=== PATIENT | female | born 1935 | race Caucasian/White ===

== ENCOUNTER 2016-09-15 | Outpatient (CLI) | payer MEDICARE, BC | END 2016-09-15 17:34 | disposition critical access hospital (66) | CPT/HCPCS: A0425; A0429 ==

== ENCOUNTER 2016-09-15 17:51 | Inpatient (IN) | payer MEDICARE, BC ==
[2016-09-15] MEDS ORDERED: SODIUM CHLORIDE 0.9% 1,000 ML IV ONE (18:09)
[2016-09-15] MEDS ORDERED: methylPREDNISolone SUCCINATE 125 MG/2 ML VIAL IVP STA (19:38)
[2016-09-15] MEDS ORDERED: IPRATROPIUM/ALBUTEROL 3 ML NEB INH STA (19:38)
[2016-09-15] MEDS ORDERED: methylPREDNISolone SUCCINATE 125 MG/2 ML VIAL IVP ONE (19:48)
[2016-09-15] MEDS ORDERED: IPRATROPIUM/ALBUTEROL 3 ML NEB INH ONE (20:32)
[2016-09-15] MEDS ORDERED: ACETAMINOPHEN 325 MG TABLET PO PRN (21:22)
[2016-09-15] MEDS ORDERED: SODIUM CHLORIDE FLUSH 0.9% 10 ML SYRINGE IVP PRN (21:22)
[2016-09-15] MEDS ORDERED: ONDANSETRON 4 MG/2 ML VIAL IVP PRN (21:22)
[2016-09-15] MEDS ORDERED: ALBUTEROL NEB 2.5 MG/3 ML INH PRN (21:27)
[2016-09-15] MEDS ORDERED: AZITHROMYCIN INJ 500 MG in SODIUM CHLORIDE 0.9% 250 ML IV SCH (21:29)
[2016-09-15] MEDS ORDERED: levETIRAcetam 100 MG/ML 473ML BOTTLE PO SCH (22:00)
[2016-09-15] MEDS: methylPREDNISolone SUCCINATE 40 MG/ML VIAL IVP SCH ×2 (22:15→22:39)
[2016-09-15] MEDS: IPRATROPIUM/ALBUTEROL 3 ML NEB INH SCH ×3 (22:15→23:29)
[2016-09-15] MEDS ORDERED: levETIRAcetam 250 MG TABLET ONE (22:57)
[2016-09-15] MEDS: EZETIMIBE 10 MG TABLET PO SCH (22:59)
[2016-09-15] MEDS: METOPROLOL TARTRATE 50 MG TABLET PO SCH (22:59)
[2016-09-15] MEDS: OLANZapine ODT 5 MG TABLET TL SCH (23:01)
[2016-09-15] MEDS: SODIUM CHLORIDE FLUSH 0.9% 10 ML SYRINGE IVP SCH (23:02)
[2016-09-16] MEDS: IPRATROPIUM/ALBUTEROL 3 ML NEB INH SCH ×4 (02:10→22:26)
[2016-09-16] MEDS: LEVOTHYROXINE 25 MCG TABLET PO SCH (06:53)
[2016-09-16] MEDS: SODIUM CHLORIDE FLUSH 0.9% 10 ML SYRINGE IVP SCH ×3 (06:53→20:37)
[2016-09-16] MEDS: HYDROcod/ACETAM 5/325 MG TABLET PO SCH ×2 (08:21→20:35)
[2016-09-16] MEDS: methylPREDNISolone SUCCINATE 40 MG/ML VIAL IVP SCH ×2 (09:21→20:37)
[2016-09-16] MEDS: METOPROLOL TARTRATE 50 MG TABLET PO SCH ×2 (09:21→20:36)
[2016-09-16] MEDS: PANTOPRAZOLE 40 MG TABLET PO SCH (09:21)
[2016-09-16] MEDS: DOCUSATE SODIUM 100 MG CAPSULE PO SCH ×2 (09:22→21:33)
[2016-09-16] MEDS: DULoxetine 30 MG CAPSULE PO SCH (09:22)
[2016-09-16] MEDS: ASPIRIN CHEW 81 MG TABLET PO SCH (09:22)
[2016-09-16] MEDS: OLANZapine ODT 5 MG TABLET TL SCH ×2 (09:22→20:35)
[2016-09-16] MEDS: ENOXAPARIN 40 MG/0.4 ML SYRINGE SUBQ SCH (09:23)
[2016-09-16] MEDS: levETIRAcetam 250 MG TABLET PO SCH ×2 (09:23→20:35)
[2016-09-16] MEDS: DONEPEZIL 5 MG TABLET PO SCH (09:23)
[2016-09-16] MEDS: POLYETHYLENE GLYCOL 3350 17 GM PACKET PO SCH (09:23)
[2016-09-16] MEDS ORDERED: levETIRAcetam 250 MG TABLET PO SCH (09:30)
[2016-09-16] MEDS: ATORVASTATIN 40 MG TABLET PO SCH (20:36)
[2016-09-16] MEDS: EZETIMIBE 10 MG TABLET PO SCH (21:33)
[2016-09-17] MEDS: IPRATROPIUM/ALBUTEROL 3 ML NEB INH SCH ×2 (01:00→21:44)
[2016-09-17] MEDS: LEVOTHYROXINE 25 MCG TABLET PO SCH (07:07)
[2016-09-17] MEDS: SODIUM CHLORIDE FLUSH 0.9% 10 ML SYRINGE IVP SCH ×3 (07:08→20:32)
[2016-09-17] MEDS: POLYETHYLENE GLYCOL 3350 17 GM PACKET PO SCH (08:23)
[2016-09-17] MEDS: DULoxetine 30 MG CAPSULE PO SCH (08:24)
[2016-09-17] MEDS: levETIRAcetam 250 MG TABLET PO SCH ×2 (08:24→20:26)
[2016-09-17] MEDS: ASPIRIN CHEW 81 MG TABLET PO SCH (08:24)
[2016-09-17] MEDS: DOCUSATE SODIUM 100 MG CAPSULE PO SCH (08:25)
[2016-09-17] MEDS: HYDROcod/ACETAM 5/325 MG TABLET PO SCH ×2 (08:25→20:26)
[2016-09-17] MEDS: PANTOPRAZOLE 40 MG TABLET PO SCH (08:25)
[2016-09-17] MEDS: OLANZapine ODT 5 MG TABLET TL SCH ×2 (08:25→20:27)
[2016-09-17] MEDS: METOPROLOL TARTRATE 50 MG TABLET PO SCH ×2 (08:25→20:27)
[2016-09-17] MEDS: DONEPEZIL 5 MG TABLET PO SCH (08:25)
[2016-09-17] MEDS: methylPREDNISolone SUCCINATE 40 MG/ML VIAL IVP SCH ×2 (08:26→20:24)
[2016-09-17] MEDS: ENOXAPARIN 40 MG/0.4 ML SYRINGE SUBQ SCH (08:26)
[2016-09-17] MEDS ORDERED: BISACODYL 10 MG SUPP PR ONE (14:00)
[2016-09-17] MEDS: ATORVASTATIN 40 MG TABLET PO SCH (20:26)
[2016-09-17] MEDS: EZETIMIBE 10 MG TABLET PO SCH (21:46)
[2016-09-18] MEDS: LEVOTHYROXINE 25 MCG TABLET PO SCH (06:31)
[2016-09-18] MEDS: SODIUM CHLORIDE FLUSH 0.9% 10 ML SYRINGE IVP SCH ×3 (06:31→21:11)
[2016-09-18] MEDS: IPRATROPIUM/ALBUTEROL 3 ML NEB INH SCH ×4 (07:36→21:05)
[2016-09-18] MEDS: OLANZapine ODT 5 MG TABLET TL SCH ×2 (09:36→21:01)
[2016-09-18] MEDS: HYDROcod/ACETAM 5/325 MG TABLET PO SCH ×2 (09:36→21:04)
[2016-09-18] MEDS: DOCUSATE SODIUM 250 MG CAPSULE PO SCH (09:36)
[2016-09-18] MEDS: ASPIRIN CHEW 81 MG TABLET PO SCH (09:36)
[2016-09-18] MEDS: DONEPEZIL 5 MG TABLET PO SCH (09:37)
[2016-09-18] MEDS: methylPREDNISolone SUCCINATE 40 MG/ML VIAL IVP SCH ×2 (09:37→21:04)
[2016-09-18] MEDS: levETIRAcetam 250 MG TABLET PO SCH ×2 (09:37→21:02)
[2016-09-18] MEDS: DULoxetine 30 MG CAPSULE PO SCH (09:37)
[2016-09-18] MEDS: PANTOPRAZOLE 40 MG TABLET PO SCH (09:37)
[2016-09-18] MEDS: METOPROLOL TARTRATE 50 MG TABLET PO SCH ×2 (09:37→21:03)
[2016-09-18] MEDS: SENNA 8.6 MG TABLET PO SCH (09:37)
[2016-09-18] MEDS: ENOXAPARIN 40 MG/0.4 ML SYRINGE SUBQ SCH (09:37)
[2016-09-18] MEDS: POLYETHYLENE GLYCOL 3350 17 GM PACKET PO SCH (09:38)
[2016-09-18] MEDS ORDERED: BISACODYL 10 MG SUPP PR ONE (18:00)
[2016-09-18] MEDS: EZETIMIBE 10 MG TABLET PO SCH (21:03)
[2016-09-18] MEDS: ATORVASTATIN 40 MG TABLET PO SCH (21:03)
[2016-09-19] MEDS: SODIUM CHLORIDE FLUSH 0.9% 10 ML SYRINGE IVP SCH ×2 (06:46→14:08)
[2016-09-19] MEDS: LEVOTHYROXINE 25 MCG TABLET PO SCH (06:46)
[2016-09-19] MEDS: IPRATROPIUM/ALBUTEROL 3 ML NEB INH SCH ×2 (07:30→13:15)
[2016-09-19] MEDS: OLANZapine ODT 5 MG TABLET TL SCH (08:37)
[2016-09-19] MEDS: PANTOPRAZOLE 40 MG TABLET PO SCH (08:37)
[2016-09-19] MEDS: HYDROcod/ACETAM 5/325 MG TABLET PO SCH (08:38)
[2016-09-19] MEDS: METOPROLOL TARTRATE 50 MG TABLET PO SCH (08:38)
[2016-09-19] MEDS: DONEPEZIL 5 MG TABLET PO SCH (08:38)
[2016-09-19] MEDS: levETIRAcetam 250 MG TABLET PO SCH (08:38)
[2016-09-19] MEDS: DULoxetine 30 MG CAPSULE PO SCH (08:39)
[2016-09-19] MEDS: ENOXAPARIN 40 MG/0.4 ML SYRINGE SUBQ SCH (08:39)
[2016-09-19] MEDS: DOCUSATE SODIUM 250 MG CAPSULE PO SCH (08:39)
[2016-09-19] MEDS: ASPIRIN CHEW 81 MG TABLET PO SCH (08:39)
[2016-09-19] MEDS: methylPREDNISolone SUCCINATE 40 MG/ML VIAL IVP SCH (08:39)
[2016-09-19] MEDS: SENNA 8.6 MG TABLET PO SCH (08:40)
[2016-09-19] MEDS: POLYETHYLENE GLYCOL 3350 17 GM PACKET PO SCH (08:40)
== END 2016-09-19 16:15 | disposition home or self-care (01) | DRG 189 ==
DX: J96.01 Acute respiratory failure with hypoxia (principal); J44.9 Chronic obstructive pulmonary disease, unspecified; R09.02 Hypoxemia; J44.1 Chronic obstructive pulmonary disease with (acute) exacerbation; E78.00 Pure hypercholesterolemia, unspecified; I25.10 Atherosclerotic heart disease of native coronary artery without angina pectoris; K90.0 Celiac disease; I10 Essential (primary) hypertension; F03.90 Unspecified dementia, unspecified severity, without behavioral disturbance, psychotic disturbance, mood disturbance, and anxiety; F32.9 Major depressive disorder, single episode, unspecified; G40.909 Epilepsy, unspecified, not intractable, without status epilepticus; Z88.5 Allergy status to narcotic agent; Z79.82 Long term (current) use of aspirin; G40.409 Other generalized epilepsy and epileptic syndromes, not intractable, without status epilepticus; Z95.1 Presence of aortocoronary bypass graft; Z87.891 Personal history of nicotine dependence; E78.5 Hyperlipidemia, unspecified; I25.2 Old myocardial infarction; E03.9 Hypothyroidism, unspecified; Z95.5 Presence of coronary angioplasty implant and graft; J45.909 Unspecified asthma, uncomplicated

== ENCOUNTER 2016-09-20 | Outpatient (CLI) | payer MEDICARE, BC | END 2016-09-20 13:38 | disposition home or self-care (01) | CPT/HCPCS: A0425; A0428 ==

== ENCOUNTER 2016-09-20 | Outpatient (CLI) | payer MEDICARE, BC | END 2016-09-20 10:04 | disposition critical access hospital (66) | CPT/HCPCS: A0425; A0429 ==

== ENCOUNTER 2016-09-20 10:17 | Emergency (ER) | payer MEDICARE, BC | END 2016-09-20 13:33 | disposition home or self-care (01) | DX: F03.90 Unspecified dementia, unspecified severity, without behavioral disturbance, psychotic disturbance, mood disturbance, and anxiety (principal); W06.XXXA Fall from bed, initial encounter; Y92.122 Bedroom in nursing home as the place of occurrence of the external cause; J45.909 Unspecified asthma, uncomplicated; E78.00 Pure hypercholesterolemia, unspecified; I25.10 Atherosclerotic heart disease of native coronary artery without angina pectoris; I10 Essential (primary) hypertension; Z95.1 Presence of aortocoronary bypass graft; K21.9 Gastro-esophageal reflux disease without esophagitis; G40.909 Epilepsy, unspecified, not intractable, without status epilepticus; Z87.442 Personal history of urinary calculi ==